=== PATIENT | female | born 1940 ===

== ENCOUNTER → 2018-05-30 | Outpatient (CLI) | payer OTHER | END | disposition home or self-care (01) | LOC: WOUND MED 09:42 | DX: L98.492 Non-pressure chronic ulcer of skin of other sites with fat layer exposed (principal) | CPT/HCPCS: 11042; G0463; A4554; A4930; A6216; A6219 ==

== ENCOUNTER → 2018-06-06 | Outpatient (CLI) | payer OTHER | END | disposition home or self-care (01) | LOC: WOUND MED 09:13 | DX: L98.492 Non-pressure chronic ulcer of skin of other sites with fat layer exposed (principal) | CPT/HCPCS: 11042; A4554; A4930; A6216; A6219 ==

== ENCOUNTER → 2018-06-16 | Outpatient (CLI) | payer OTHER | END | disposition home or self-care (01) | LOC: WOUND MED 10:25 | DX: L98.492 Non-pressure chronic ulcer of skin of other sites with fat layer exposed (principal) | CPT/HCPCS: G0463; A4554; A4930; A6216 ==

== ENCOUNTER 2021-06-26 08:13 | Outpatient (CLI) | payer OTHER ==
[~2021-06-26 08:13] MED LIST: LIDODERM1 EACH TOP
== END 2021-06-26 08:17 | disposition home or self-care (01) ==
LOC: RX STUDY 08:13
PROVIDERS: ATTEND Internal Medicine Gastroenterology
DX: R13.10 Dysphagia, unspecified (principal); K22.2 Esophageal obstruction